=== PATIENT | female | born 1960 | race Caucasian/White ===

== ENCOUNTER 2023-08-18 06:56 | Outpatient (RCR) | payer OTHER ==
[~2023-08-18 06:56] MED LIST: ALLEGRA-D 24 H1 EACH PO; ALLERGY SHOTS; HTN MED; STATIN
== END 2023-08-21 ==
LOC: PT 06:56
PROVIDERS: ATTEND Neurological Surgery
DX: M48.061 Spinal stenosis, lumbar region without neurogenic claudication (principal)